=== PATIENT | female | born 1985 | race Caucasian/White ===

== ENCOUNTER → 2017-02-03 | Outpatient (CLI) | payer OTHER ==
[2017-02-03 12:25] LABS: Basophils # (A) 0.1 k/uL (0-0.2); Basophils % (A) 1 %; CH 30.3; CHCM 33.9; Eosinophils # (A) 0.1 k/uL (0-0.7); Eosinophils % (A) 1 %; HCT 44.6 % (34.0-46.0); HDW 2.65; HGB 15.1 gm/dL (11.4-16.0); Luc # (Auto) 0.12; Luc % (Auto) 1; Lymphocytes # (A) 1.9 k/uL (1.0-4.8); Lymphocytes % (A) 21 %; MCH 30.5 pg (25.0-35.0); MCHC 33.9 g/dL (31.0-37.0); MCV 89.9 fL (80.0-100.0); Mean Platelet Volume 7.1; Monocytes # (A) 0.6 k/uL (0-1.0); Monocytes % (A) 6 %; Neutrophils # (A) 6.4 k/uL (1.3-7.7); Neutrophils % (A) 70 %; RBC 4.96 m/uL (3.80-5.40); RDW 12.8 % (11.5-15.5); WBC 9.2 k/uL (3.8-10.6); WBC (Perox) 9.47
[2017-02-03 12:52] LABS: ALT 29 U/L (9-52); AST 15 U/L (14-36); Alkaline Phosphatase 71 U/L (38-126); Anion Gap 10 mmol/L; Blood Urea Nitrogen 11 mg/dL (7-17); Calcium 9.3 mg/dL (8.4-10.2); Carbon Dioxide 24 mmol/L (22-30); Chloride 106 mmol/L (98-107); Glucose 101 mg/dL (74-99); Non-African American GFR(MDRD) >60 (>60 ml/min/1.73 sqM); Potassium 4.3 mmol/L (3.5-5.1); Sodium 140 mmol/L (137-145); Total Bilirubin 0.6 mg/dL (0.2-1.3); Total Protein 6.9 g/dL (6.3-8.2)
== END ==
LOC: LABWHC1 11:56
PROVIDERS: ATTEND Psychiatry & Neurology Psychiatry
DX: T50.905A Adverse effect of unspecified drugs, medicaments and biological substances, initial encounter (principal)
CPT/HCPCS: 36415; 80053; 84443; 85025

== ENCOUNTER → 2017-04-23 | Outpatient (CLI) | payer OTHER ==
--- NOTE | 2017-04-24 08:43 | MM ---
Reason for exam: screening (asymptomatic). Baseline mammogram. History: Patient is nulliparous. Family history of breast cancer in maternal uncle at age 50 and breast cancer in maternal aunt at age 40. Taking hormonal contraceptives for 4 years beginning at age 31. Physical Findings: Nurse did not find any significant physical abnormalities on exam. MG Screening Mammo w CAD Bilateral CC and MLO view(s) were taken. The breast tissue is heterogeneously dense. This may lower the sensitivity of mammography. Finding: There are round, diffuse/scattered calcifications in both breasts. There is no discrete suspicious abnormality. These results were verbally communicated with the patient and result sheet given to the patient on 04/23/17. ASSESSMENT: Benign, BI-RAD 2 RECOMMENDATION: Routine screening mammogram of both breasts in 1 year.
== END | disposition home or self-care (01) ==
LOC: RADMAMWWP 14:19
PROVIDERS: ATTEND Family Medicine
DX: Z12.31 Encounter for screening mammogram for malignant neoplasm of breast (principal)

== ENCOUNTER → 2017-05-20 | Outpatient (CLI) | payer OTHER ==
--- NOTE | 2017-05-20 19:03 | MR ---
EXAMINATION TYPE: MR brain wo con DATE OF EXAM: 05/20/2017 4:50 PM COMPARISON: NONE HISTORY: Hx of Headaches Multiplanar and multispin-echo imaging of the brain was performed . The ventricles, basal cisterns and sulci overlying the cerebral convexities are within normal limits. There is no evidence for midline shift or mass effect. Acute intracranial hemorrhage or extra-axial collection is not evident. The brain parenchyma reveals no abnormal increased signal. No acute edema is identified. The paranasal sinuses and mastoid air cells are well-aerated. IMPRESSION: Unremarkable MRI of the brain.
== END | disposition home or self-care (01) ==
LOC: RADMRIMAIN 14:59
PROVIDERS: ATTEND Psychiatry & Neurology Pain Medicine
DX: R51 Headache (principal); G89.4 Chronic pain syndrome; Z79.899 Other long term (current) drug therapy; Z88.2 Allergy status to sulfonamides; Z88.3 Allergy status to other anti-infective agents; Z88.5 Allergy status to narcotic agent
CPT/HCPCS: 70551

== ENCOUNTER → 2017-05-22 | Outpatient (CLI) | payer OTHER ==
[2017-05-22 11:21] LABS: Calcium 9.2 mg/dL (8.4-10.2); Magnesium 1.9 mg/dL (1.6-2.3)
[2017-05-22 11:38] LABS: Fibrinogen 508 mg/dL (200-500)
[2017-05-22 11:44] LABS: Hemoglobin A1C 4.9 % (4.2-6.1)
[2017-05-22 16:34] LABS: RNP AB Interpretation NEGATIVE (NEGATIVE)
[2017-05-22 16:45] LABS: Cyclic Citrull Pep IgG Unit <0.5 U/mL; Cyclic Citrullinated Pep IgG NEGATIVE (NEGATIVE)
[2017-05-25 08:30] LABS: Vitamin E (Alpha Tocopherol) 1045 ug/dL (500-1800)
[2017-05-25 09:30] LABS: Mis test requested (Blood) THROMBIN TIME W/RFX
[2017-05-25 12:02] LABS: Protein C (Activity) 125 % (70 - 130)
[2017-05-25 12:03] LABS: Protein S (Activity) 82 % (65 - 140); Protein S Antigen 105 % (50 - 140)
[2017-05-26 12:00] LABS: Protein C Antigen 127 % (72-160)
== END | disposition home or self-care (01) ==
LOC: LABWHC1 10:22
PROVIDERS: ATTEND Psychiatry & Neurology Pain Medicine
DX: G89.4 Chronic pain syndrome (principal); Z79.899 Other long term (current) drug therapy
CPT/HCPCS: 36415; 81240; 81291; 82306; 82310; 82550; 83036; 83090; 83519; 83735; 84207; 84425; 84446; 84590; 84591; 84597; 85300; 85301; 85302; 85303; 85305; 85306; 85379; 85384; 85613; 85670; 85730; 86147; 86200; 86235

== ENCOUNTER → 2017-07-28 | Outpatient (CLI) | payer OTHER ==
--- NOTE | 2017-07-28 21:39 | CONS ---
CONSULTATION REASON FOR CONSULTATION: This is a consultation for sleep apnea. HISTORY OF PRESENT ILLNESS: Jamee is 32, with history of severe depression. The patient reports chronic anxiety and depression and she has also she has had also episodes of hallucinations. She was admitted on multiple occasions to psychiatrically wart at [facility] and currently she is on a combination of Pristiq, Latuda and BuSpar. There was a concern that she may have a sleep breathing disorder knowing that she has been feeling very tired and sleepy during the day. She spends more than 10 hours in bed. Sometimes takes a few hours to fall asleep and after falling sleep she wakes up constantly in the middle of the night. She goes to bed around 10:00 pm wakes up 10:00 am in the morning. She is told to be snoring. She is excessively fatigued and sleepy during the day. She wakes up occasionally to urinate and she grinds her teeth. She obviously has chronic anxiety and occasional panic attacks. As for the hallucinations she sees ants and demons, mainly demons when she wakes up in the morning. Sometimes the demons talk to her. She claims that she is awake when she is having these hallucinations. As such, there are some visual and auditory hallucinations, mainly she wakes up in the morning. Rarely while trying to go to sleep. She also has some occasional sleep paralysis, no cataplexy noted. No personal or family history of narcolepsy at all. She has been told that her depression was the main source for hallucinations which seems to be a major depression and over the past 2 months with recent adjustment in her medications she has not had any hallucinations. No substance abuse. No alcoholism. No sleepwalking or sleep talking. No sleep eating disorder. No significant restlessness in the lower extremities. Although she has been told to have some restless sleep and she tosses and turns and kicks as reported by her family members. She takes around 3 hours nap in the afternoon. PAST MEDICAL HISTORY: 1. Major depression. 2. Anxiety. 3. Hallucinations. 4. Occasional nightmares. SURGICAL HISTORY: Includes an appendectomy, sinus surgery, cholecystectomy. DRUG ALLERGIES: ARE TO SULFA. CODEINE. CLARITIN. SOCIAL HISTORY: The patient is a nonsmoker. No history of alcohol. No history of IV drugs. She is disabled. MEDICATION: Includes: 1. Pristiq 50 daily. 2. Latuda 60 daily. 3. BuSpar 30 mg twice a day. FAMILY HISTORY: Negative for sleep breathing disorder and sleep apnea. REVIEW OF SYSTEMS: 12-point review of system was done. Positive findings are mentioned above in history of present illness. As mentioned, she has major depression along with anxiety and she has been socially withdrawn. She was very much anxious when she was in public places. No palpitations at nighttime. No heartburn, no sleepwalking, no sleep talking, no restlessness in lower extremities. No waking up choking or gasping for air. She grinds her teeth. She has panic nocturia and she has also excessive fatigue and sleepiness along with her depression and anxiety. PHYSICAL EXAMINATION: BP is 102/66, pulse 84, respirations 16, temp 98.7, saturation 97% on room air. BMI 36.4, weight is 241. Height is 5 feet 8 inches. Neck size is 14.5 inches. General appearance, calm comfortable not in acute distress. HEENT: Negative for goiter or neck masses. Mallampati class 4. Slight overbite. Head is atraumatic, normocephalic. LUNGS: Clear to auscultation. HEART: Sounds regular rate and rhythm. Normal S1, S2. No murmurs. ABDOMEN: Soft, nontender. No organomegaly. EXTREMITIES: No edema. No cyanosis or clubbing. Skin negative for rashes or ulcers and neuro is awake, alert and oriented times three. There is no focal neurological deficits. Psych as mentioned above. No active hallucinations or no active anxiety at this point. IMPRESSION: 1. Chronic hypersomnia and fatigue rule out underlying obstructive sleep apnea. Sleep apnea will be need to be ruled out although the patient has multiple other causes for her chronic fatigue and sleepiness including her history of depression and anxiety. 2. Hallucinations likely psychiatric in nature. Doubt narcolepsy. 3. Obesity BMI 36.1. 4. Chronic fatigue and sleepiness with an Ostrander score of 5. 5. Major depression. 6. Anxiety. 7. Episodes of nightmares. PLAN: 1. We will perform a full polysomnogram in the sleep center. 2. Keep same medications includes a combination of BuSpar, Latuda and Pristiq. 3. Encourage weight loss. 4. Implement good sleep hygiene measures. 5. We will offer treatment if there is any significant sleep breathing disorder. MMODL / IJN: [id number] /
== END ==
LOC: SLEEP 13:58
PROVIDERS: ATTEND Internal Medicine Critical Care Medicine
DX: G47.10 Hypersomnia, unspecified (principal); R44.3 Hallucinations, unspecified; E66.9 Obesity, unspecified; R53.82 Chronic fatigue, unspecified; F41.9 Anxiety disorder, unspecified; F32.9 Major depressive disorder, single episode, unspecified; F51.5 Nightmare disorder; Z68.36 Body mass index [BMI] 36.0-36.9, adult; Z79.899 Other long term (current) drug therapy; Z88.2 Allergy status to sulfonamides; Z88.5 Allergy status to narcotic agent
CPT/HCPCS: 99211

== ENCOUNTER → 2017-11-05 | Outpatient (CLI) | payer OTHER ==
--- NOTE | 2017-11-05 18:15 | MR ---
EXAMINATION TYPE: MR lumbar spine wo con DATE OF EXAM: 11/05/2017 COMPARISON: NONE HISTORY: Low back pain TECHNIQUE: T1 and T2 axial and sagittal images of the lumbar spine are submitted. FINDINGS: There is no abnormal signal seen within the visualized spinal cord or paraspinal soft tissu es. Simple right renal cyst incidentally noted. Tarlov cyst noted involving the S1-S2 level. At least one large cyst is seen extending through the S1 neural foramina on the left. At L1-2 there is no disc herniation or canal stenosis. No foraminal encroachment. At L2-3 there is there is a nerve root sleeve diverticulum on the right which may have some mass effe ct on the nerve root. No disc herniation or canal stenosis. At L3-4 there is no disc herniation or canal stenosis. No foraminal encroachment. At L4-5 there is no disc herniation or canal stenosis. No foraminal encroachment. At L5-S1 there is no disc herniation or canal stenosis. No foraminal encroachment. Findings are sugge stive of a bilateral spondylolysis of L5 with no spondylolisthesis. IMPRESSION: 1. There is a prominent nerve root sleeve diverticulum on the right at L2-L3. The seen within the rig ht neural foramina may have some mass effect upon the right nerve root correlate clinically. 2. Tiny areas are suspicious for bilateral spondylolysis of L5. 3. Multiple sacral Tarlov cysts.
== END | disposition home or self-care (01) ==
LOC: RADMRIMAIN 17:29
PROVIDERS: ATTEND Psychiatry & Neurology Neurology
DX: G96.19 Other disorders of meninges, not elsewhere classified (principal)
CPT/HCPCS: 72148

== ENCOUNTER → 2017-11-10 | Outpatient (CLI) | payer OTHER ==
--- NOTE | 2017-11-10 16:06 | PN ---
PROGRESS NOTE PROGRESS NOTE FROM THE SLEEP CENTER: This patient is 32, diagnosed having marked to moderate obstructive sleep apnea. The patient is coming in for a compliancy check. The patient has history of chronic depression. She has been maintained on a combination of Pristiq, Latuda and BuSpar. Recently there have been changes done on her medication list which affected her depression and anxiety adversely. She became more symptomatic and she had to contact her counselor and her psychiatrist for further adjustment. Based on this, all the adjustments that were made were undone, and the patient is currently back to her routine medication. The most recent regimen right now is BuSpar, Abilify and Pristiq. The patient is not having any suicidal ideation at this point and she is seeing her counselor on a regular basis. In regard to her obstructive sleep apnea, the patient reports improvement in her sleep quality. She is not requiring long hours of sleep. She wakes up at 5 a.m. in the morning and she is well refreshed and alert during the day. As mentioned earlier, she has gained a significant amount of weight due to her depression and psychiatric medication, and currently she is up to 250 and she is interested in weight loss. She will be undergoing a hysterectomy for vaginal bleeding and this will be done at the [facility]. In terms of obstructive sleep apnea, the patient is benefitting from the treatment. She has no issues continuing the treatment for now. Her CPAP compliance data show that the numbers are gradually improving, especially over the past week. Her overall CPAP use is around 4.9 hours per night. Leak factor is 6 L. AHI is down to 0.8 while on treatment. Her current CPAP pressure is 8 cm of water. CPAP use for more than 4 hours is 28/30 over the past month. PHYSICAL EXAMINATION: BP is 104/66, pulse 72, respiratory rate 16. Weight is 250, temperature 98.1, saturation 98% on room air. GENERAL APPEARANCE: Calm, comfortable, in no acute distress. Head is atraumatic, normocephalic. NECK: Negative for JVD. There is no goiter or neck masses. Some keloids on the ears. Mallampati class 2 to 3. LUNGS: Clear to auscultation. HEART: Heart sounds are regular rate and rhythm. Normal S1, S2. No S3. No S4. No murmurs. ABDOMEN: Soft and nontender. EXTREMITIES: There is no cyanosis or clubbing at this point. SKIN: The patient has no ulcerations or wounds. NEUROLOGIC: Alert and oriented x3. There is no focal neurological deficit. IMPRESSION: 1. Symptomatic obstructive sleep apnea; AHI of 18; currently on successful treatment at a pressure of 7 cm of water. 2. Chronic depression. 3. History of weight loss. Current weight is up to 250. BMI is above 35. 4. History of vaginal bleeding; awaiting hysterectomy. PLAN: The patient is compliant. Her compliance data show improvement in use and she has been averaging a higher number of hours on her CPAP per night. She is waking up much more alert and refreshed during the day. Her hypersomnia has improved. Continue the same treatment. Take the CPAP machine with her and use it perioperatively post hysterectomy. The patient is doing well. She seems to be committed to weight loss. I will see her back in a year's time in followup, earlier if needed. Currently she is using a Mirage FX nose mask. MMMILYL / IJN: [id number] /
== END | disposition home or self-care (01) ==
LOC: SLEEP 14:28
PROVIDERS: ATTEND Internal Medicine Critical Care Medicine
DX: G47.33 Obstructive sleep apnea (adult) (pediatric) (principal); F32.9 Major depressive disorder, single episode, unspecified

== ENCOUNTER → 2018-03-09 | Outpatient (CLI) | payer OTHER ==
[2018-03-10 01:23] LABS: Cyclic Citrullinated Pep IgG NEGATIVE (NEGATIVE); DNA Double-Stranded NEGATIVE (NEGATIVE); RNP <0.2 AI; Scleroderma SC-70 Ab <0.2 AI
== END | disposition home or self-care (01) ==
LOC: LABWHC1 16:04
PROVIDERS: ATTEND Psychiatry & Neurology Pain Medicine
DX: M25.50 Pain in unspecified joint (principal)
CPT/HCPCS: 36415; 83516; 86038; 86200; 86225; 86235

== ENCOUNTER → 2018-05-20 | Outpatient (CLI) | payer OTHER ==
--- NOTE | 2018-05-20 22:48 | MR ---
EXAMINATION TYPE: MR brain wo/w con DATE OF EXAM: 05/20/2018 COMPARISON: Prior MRI brain May 20, 2017 HISTORY: Headaches, unusual duration per order. TECHNIQUE: Multiplanar, multisequence images of the brain and brainstem is performed without and with IV contras t, utilizing 11 mL intravenous Gadavist . FINDINGS: Diffusion weighted images demonstrate no evidence of a recent infarct or other diffusion ab normality. There is no extra-axial fluid collection or significant white matter signal abnormality. The ventricular system and cisternal spaces are normal in size and appearance. The brain volume is age appropriate. Midline structures demonstrate normal morphology. The craniocervical junction appears within normal limits. Post contrast images demonstrate no abnormal enhancement. Dominant left vertebral artery is incidentally redemonstrated. The dural venous sinuses appear patent. The visualized sinuses are clear and the globes are intact. IMPRESSION: No suspicious new finding identified to account for patient's symptoms. No significant ch luis from prior.
== END | disposition home or self-care (01) ==
LOC: RADMRIMAIN 21:38
PROVIDERS: ATTEND Psychiatry & Neurology Neurology
DX: R51 Headache (principal); Z88.2 Allergy status to sulfonamides; Z88.5 Allergy status to narcotic agent; Z88.8 Allergy status to other drugs, medicaments and biological substances; Z91.040 Latex allergy status
CPT/HCPCS: 70553; A9581

== ENCOUNTER → 2018-06-08 | Outpatient (CLI) | payer OTHER ==
--- NOTE | 2018-06-08 13:38 | XR ---
EXAMINATION TYPE: XR chest 2V DATE OF EXAM: 06/08/2018 COMPARISON: NONE TECHNIQUE: PA and lateral views submitted. HISTORY: Cough FINDINGS: The lungs are clear and there is no pneumothorax, pleural effusion, or focal pneumonia. IMPRESSION: 1. No acute process.
== END | disposition home or self-care (01) ==
LOC: RADXRMAIN 13:06
PROVIDERS: ATTEND Nurse Practitioner
DX: J45.991 Cough variant asthma (principal); G44.83 Primary cough headache
CPT/HCPCS: 71046

== ENCOUNTER → 2018-07-12 | Outpatient (CLI) | payer OTHER ==
[2018-07-12 14:36] LABS: Basophils # (A) 0.1 k/uL (0-0.2); Basophils % (A) 1 %; Eosinophils # (A) 0.1 k/uL (0-0.7); Eosinophils % (A) 1 %; HCT 44.8 % (34.0-46.0); HGB 14.9 gm/dL (11.4-16.0); Lymphocytes # (A) 1.7 k/uL (1.0-4.8); Lymphocytes % (A) 16 %; MCHC 33.2 g/dL (31.0-37.0); MCV 90.3 fL (80.0-100.0); Mean Platelet Volume 7.3; Monocytes # (A) 0.8 k/uL (0-1.0); Monocytes % (A) 7 %; Neutrophils # (A) 7.5 k/uL (1.3-7.7); Neutrophils % (A) 73 %; Platelet Count 214 k/uL (150-450); RBC 4.96 m/uL (3.80-5.40); RDW 13.2 % (11.5-15.5); WBC 10.4 k/uL (3.8-10.6)
[2018-07-12 16:05] LABS: Total Eosinophil Count 87 #EOS/uL (150-300)
== END | disposition home or self-care (01) ==
LOC: LABWHC1 14:04
PROVIDERS: ATTEND Allergy & Immunology
DX: R05 Cough (principal)
CPT/HCPCS: 36415; 85008; 85025

== ENCOUNTER 2018-08-06 17:21 | Inpatient (IN) | payer MEDICARE, MEDICAID ==
--- NOTE | 2018-08-06 17:51 | ED ---
Psych HPI - General Chief Complaint: Psychiatric Symptoms Stated Complaint: EPS eval Time Seen by Provider: 08/06/18 17:51 Source: patient Mode of arrival: ambulatory - History of Present Illness Initial Comments: This is a 33-year-old female the ER for evaluation of psychiatric illness. Patient states she feels like she is having some hallucinations and delusions, thinking strong her skin, very emotional crying a controlled crying, patient cause of urticaria they were she was seen for possible ALLERGIC reaction. Patient's mental state custody come to ER for evaluation, she call [facility] to directed patient to emergency room MD Complaint: suicidal ideation, feels depressed -: unknown Associated Psychiatric Symptoms: depression, racing thoughts, visual hallucinations, delusions History of same: Yes Quality: intermittent, getting worse Improves With: none Worsens With: medication Associated Symptoms: denies other symptoms Treatments Prior to Arrival: none - Related Data Home Medications Medication Instructions Recorded Confirmed Budesonide [Pulmicort Flexhaler] 2 puff INHALATION RT-BID 08/06/18 08/06/18 Butalb/APAP/Caff 50-325-40Mg 1 tab PO DAILY PRN 08/06/18 08/06/18 [Fioricet 50-325-40] Fluticasone Nasal Juliette [Flonase 2 spray EA NOSTRIL BID 08/06/18 08/06/18 Nasal Juliette] Gabapentin [Neurontin] 300 mg PO BID@,08/06/18 08/06/18 Ondansetron HCl [Zofran] 4 mg PO TID PRN 08/06/18 08/06/18 Ranitidine HCl [Zantac] 150 mg PO BID@,08/06/18 08/06/18 Topiramate [Topamax] 50 mg PO BID@,08/06/18 08/06/18 busPIRone HCL [Buspar] 30 mg PO BID@,08/06/18 08/06/18 fluvoxaMINE [Luvox] 50 mg PO AC-LUNCH@1100 08/06/18 08/06/18 Allergies Allergy/AdvReac Type Severity Reaction Status Date / Time codeine Allergy Unknown Verified 08/06/18 18:11 levocetirizine [From Xyzal] Allergy Unknown Verified 08/06/18 18:11 loratadine [From Claritin] Allergy Unknown Verified 08/06/18 18:11 nortriptyline [From Pamelor] Allergy Unknown Verified 08/06/18 18:11 Sulfa (Sulfonamide Allergy Unknown Verified 08/06/18 18:11 Antibiotics) Review of Systems ROS Statement: Those systems with pertinent positive or pertinent negative responses have been documented in the HPI. ROS Other: All systems not noted in ROS Statement are negative. Past Medical History Past Medical History: No Reported History Additional Past Medical History / Comment(s): agoraphobia, ocd History of Any Multi-Drug Resistant Organisms: None Reported Past Surgical History: Appendectomy, Cholecystectomy, Hysterectomy Additional Past Surgical History / Comment(s): sinus, kidney surgery r/t no flaps on the ureters Past Psychological History: PTSD, Schizoaffective Disorder Smoking Status: Never smoker Past Alcohol Use History: None Reported Past Drug Use History: None Reported General Exam Limitations: no limitations General appearance: alert, in no apparent distress Head exam: Present: atraumatic, normocephalic, normal inspection Eye exam: Present: normal appearance, PERRL, EOMI. Absent: scleral icterus, conjunctival injection, periorbital swelling ENT exam: Present: normal exam, mucous membranes moist Neck exam: Present: normal inspection. Absent: tenderness, meningismus, lymphadenopathy Respiratory exam: Present: normal lung sounds bilaterally. Absent: respiratory distress, wheezes, rales, rhonchi, stridor Cardiovascular Exam: Present: regular rate, normal rhythm, normal heart sounds. Absent: systolic murmur, diastolic murmur, rubs, gallop, clicks GI/Abdominal exam: Present: soft, normal bowel sounds. Absent: distended, tenderness, guarding, rebound, rigid Extremities exam: Present: normal inspection, full ROM, normal capillary refill. Absent: tenderness, pedal edema, joint swelling, calf tenderness Back exam: Present: normal inspection Neurological exam: Present: alert, oriented X3, CN II-XII intact Psychiatric exam: Present: normal affect, normal mood Skin exam: Present: warm, dry, intact, normal color. Absent: rash Course Vital Signs 08/06/18 17:35 Temperature 97.9 F Pulse Rate 80 Respiratory 18 Rate Blood Pressure 114/81 O2 Sat by Pulse 99 Oximetry - Reevaluation(s) Reevaluation #1: 10/12/18 19:19 Medically clear for psychiatric evaluation Medical Decision Making - Medical Decision Making 33 female seen gracia valuated by psychiatry will be admitted for psychiatric evaluation and treatment, - Lab Data Lab Results 08/06/18 Range/Units 18:29 Urine Opiates Screen Not Detected (NotDetected) Ur Oxycodone Screen Not Detected (NotDetected) Urine Methadone Screen Not Detected (NotDetected) Ur Propoxyphene Screen Not Detected (NotDetected) Ur Barbiturates Screen Not Detected (NotDetected) U Tricyclic Antidepress Not Detected (NotDetected) Ur Phencyclidine Scrn Not Detected (NotDetected) Ur Amphetamines Screen Not Detected (NotDetected) U Methamphetamines Scrn Not Detected (NotDetected) U Benzodiazepines Scrn Not Detected (NotDetected) Urine Cocaine Screen Not Detected (NotDetected) U Marijuana (THC) Screen Not Detected (NotDetected) Disposition Clinical Impression: Acute psychosis, Depression Disposition: ADMITTED IP TO THIS [facility] Condition: Fair Is patient prescribed a controlled substance at d/c from ED?: No
[2018-08-06 19:35] LABS: Amphetamine Screen,Urine Not Detected (NotDetected); Barbiturate Screen,Urine Not Detected (NotDetected); Benzodiazepines Screen,Urine Not Detected (NotDetected); Cocaine Screen,Urine Not Detected (NotDetected); Methadone Screen, Urine Not Detected (NotDetected); Opiate Screen,Urine Not Detected (NotDetected); Oxycodone Screen, Urine Not Detected (NotDetected); Phencyclidine Screen,Urine Not Detected (NotDetected); Tricyclic Antidepressant,Urine Not Detected (NotDetected); Urn Cannabinoid Scrn Not Detected (NotDetected)
[2018-08-06] MEDS ORDERED: MAG HYDROX/AL HYDROX/SIMETH 30 ML CUP PO PRN (22:55)
[2018-08-06] MEDS ORDERED: MAGNESIUM HYDROXIDE 2,400 MG/10 ML CUP PO PRN (22:55)
[2018-08-06] MEDS ORDERED: ZIPRASIDONE 20 MG VIAL IM PRN (22:55)
[2018-08-06] MEDS ORDERED: LORazepam 1 MG TAB PO PRN (22:55)
[2018-08-06] MEDS ORDERED: LORazepam 2 MG/ML INJ IM PRN (22:58)
[2018-08-06] MEDS ORDERED: ALBUTEROL NEBULIZED 2.5 MG/3 ML INHALATION PRN (23:02)
[2018-08-06 23:12] LABS: Appearance,Urine Clear (Clear); Bilirubin,Urine Negative (Negative); Blood,Urine Negative (Negative); Color,Urine Light Yellow; Glucose,Urine (UA) Negative (Negative); Ketones,Urine Negative (Negative); Leukocyte Esterase,Urine Negative (Negative); Nitrite,Urine Negative (Negative); PH, Urine 6.5 (5.0-8.0); Protein,Urine Negative (Negative); Specific Gravity,Urine 1.005 (1.001-1.035); Urobilinogen,Urine <2.0 mg/dL (<2.0)
[2018-08-07] MEDS: FAMOTIDINE 20 MG TAB PO SCH ×3 (00:06→22:09)
[2018-08-07] MEDS: GABAPENTIN 300 MG CAP PO SCH ×3 (00:07→22:10)
[2018-08-07] MEDS: MONTELUKAST 10 MG TAB PO SCH ×2 (00:11→22:09)
[2018-08-07] MEDS: busPIRone HCl 10 MG TAB PO SCH ×3 (00:42→22:10)
[2018-08-07] MEDS ORDERED: Budesonide [Pulmicort Flexhaler] INHALATION SCH (08:00)
[2018-08-07] MEDS: FLUTICASONE 50MCG/SPRAY NASAL 16GM EA NOSTRIL SCH ×2 (08:29→21:00)
[2018-08-07 09:41] LABS: ALT 13 U/L (9-52); AST 16 U/L (14-36); Albumin 3.6 g/dL (3.5-5.0); Alkaline Phosphatase 78 U/L (38-126); Anion Gap 10 mmol/L; Blood Urea Nitrogen 9 mg/dL (7-17); Calcium 9.2 mg/dL (8.4-10.2); Carbon Dioxide 22 mmol/L (22-30); Chloride 111 mmol/L (98-107); Glucose 125 mg/dL (74-99); Potassium 4.4 mmol/L (3.5-5.1); Sodium 143 mmol/L (137-145); Total Bilirubin 0.5 mg/dL (0.2-1.3); Total Protein 6.5 g/dL (6.3-8.2)
[2018-08-07] MEDS ORDERED: busPIRone HCl 10 MG TAB PO SCH (11:00)
--- NOTE | 2018-08-07 14:55 | P.MDCNMH ---
History of Present Illness H&P Date: 08/07/18 Chief Complaint: rash 33-year-old F with PMH of asthma, GERD, migraine headaches, fibromyalgia presents to the ED for evaluation of psychiatric illness. Patient reports possible hallucinations and delusions. Patient does complain of a rash on her bilateral breast that started yesterday. Her rash was associated with tingling lips, and a feeling that she had swallowed some bees.patient states this prompted her to go to [facility] yesterday, where she received Benadryl IM injection and some ibuprofen to go home. She was told that this is an ALLERGIC reaction to Xyzal. patient reports the rash to be burning in nature, also peeling as well. Of note, patient does complain of a headache. She associates this headache to her chronic migraines. Patient reports a migraine starts in her right eye, stabbing in nature which then spreads to the rest of her head which is squeezing in nature. This headache is associated with nausea as well. She denies any lower extremity edema, fever, chills, chest pain, shortness of breath, palpitations, changes in urination or bowel habits. No changes in appetite or weight. No numbness, weakness, tingling. Review of Systems All systems: negative Past Medical History Past Medical History: No Reported History Additional Past Medical History / Comment(s): agoraphobia, ocd History of Any Multi-Drug Resistant Organisms: None Reported Past Surgical History: Appendectomy, Cholecystectomy, Hysterectomy Additional Past Surgical History / Comment(s): sinus, kidney surgery r/t no flaps on the ureters Past Psychological History: PTSD, Schizoaffective Disorder Smoking Status: Never smoker Past Alcohol Use History: None Reported Past Drug Use History: None Reported Medications and Allergies Home Medications Medication Instructions Recorded Confirmed Type Budesonide [Pulmicort Flexhaler] 2 puff INHALATION RT-BID 08/06/18 08/06/18 History Butalb/APAP/Caff 50-325-40Mg 1 tab PO DAILY PRN 08/06/18 08/06/18 History [Fioricet 50-325-40] Fluticasone Nasal Brandt [Flonase 2 spray EA NOSTRIL BID 08/06/18 08/06/18 History Nasal Brandt] Gabapentin [Neurontin] 300 mg PO BID@08/06/18 08/06/18 History Ondansetron HCl [Zofran] 4 mg PO TID PRN 08/06/18 08/06/18 History Ranitidine HCl [Zantac] 150 mg PO BID@,08/06/18 08/06/18 History Topiramate [Topamax] 50 mg PO BID@,08/06/18 08/06/18 History busPIRone HCL [Buspar] 30 mg PO BID@,08/06/18 08/06/18 History fluvoxaMINE [Luvox] 50 mg PO AC-LUNCH@1100 08/06/18 08/06/18 History Allergies Allergy/AdvReac Type Severity Reaction Status Date / Time codeine Allergy Unknown Verified 08/06/18 22:28 fish derived Allergy Anaphylaxis Verified 08/07/18 11:43 levocetirizine [From Xyzal] Allergy Unknown Verified 08/06/18 22:28 loratadine [From Claritin] Allergy Unknown Verified 08/06/18 22:28 nortriptyline [From Pamelor] Allergy Unknown Verified 08/06/18 22:28 Sulfa (Sulfonamide Allergy Unknown Verified 08/06/18 22:28 Antibiotics) celery AdvReac Nausea & Verified 08/07/18 11:42 Vomiting Milk Containing Products AdvReac Nausea & Verified 08/07/18 11:41 Vomiting nut - unspecified AdvReac Nausea & Verified 08/07/18 11:44 Vomiting tomato AdvReac Nausea & Verified 08/07/18 11:40 Vomiting wheat AdvReac Nausea & Verified 08/07/18 11:41 Vomiting Physical Exam Vitals: Vital Signs Temp Pulse Pulse Resp BP BP Pulse Ox 08/07/18 06:56 97.9 F 82 14 91/58 08/06/18 17:35 97.9 F 80 18 114/81 99 Intake and Output 08/06/18 08/07/18 08/07/18 22:59 06:59 14:59 Other: Weight 112.491 kg General: [non toxic], [no distress], [appears at stated age] Derm: [warm], [dry] Head: [atraumatic], [normocephalic], [symmetric] Eyes: [EOMI], [no lid lag], [anicteric sclera] Mouth: [no lip lesion], [mucus membranes moist] Cardiovascular: [S1S2 reg], [no murmur], [positive DP pulse bilateral] Lungs: [CTA bilateral], [no rhonchi, no rales] , [no accessory muscle use] Abdominal: [soft], [ nontender to palpation], [no guarding], [no appreciable organomegaly] Ext: [no gross muscle atrophy], [no edema], [no contractures] Neuro: [ CN II-XI grossly intact], [no focal neuro deficits] Psych: [Alert], [oriented], [appropriate affect] No obvious rash seen on bilateral chest. Mild Xerosis. No erythema or discharge. Cranial Nerve Examination - Cranial Nerves Cranial Nerve II- Optic: Intact Cranial Nerve III- Oculomotor: Intact Cranial Nerve IV- Trochlear: Intact Cranial Nerve V- Trigeminal: Intact Cranial Nerve - Abducens: Intact Cranial Nerve VII- Facial: Intact Cranial Nerve VIII- Auditory: Intact Cranial Nerve IX- Glossopharyngeal: Intact Cranial Nerve X- Vagus: Intact Cranial Nerve XI- Accessory: Intact Cranial Nerve XII- Hypoglossal: Intact Results CBC & Chem 7: 08/07/18 08:43 Labs: Abnormal Lab Results - Last 24 Hours (Table) 08/07/18 Range/Units 08:43 Chloride 111 H (98-107) mmol/L Glucose 125 H (74-99) mg/dL Assessment and Plan Assessment: Assessment and Plan 1. Migraine ALMONTE: Continue Topiramate 50 mg PO BID. Tylenol 650 mg PO Q4H for ALMONTE. Would change to Fioricet if possible (has caffeine in it). 2. Rash: Not obviously noticable. No signs of infection. Likely xerosis, does not appear to be an allergy. Trial of Eucerin. 3. Hallucinations: Management as per Psychiatry. 4. Fibromyalgia: Stable. Continue Gabapentin 300 mg PO BID. 5. Asthma: Stable. Albuterol neb PRN for SOB. Continue Pulmicort 2 puff BID, Singulair 10 mg PO QHS. 6. GERD: Pepcid 20 mg PO BID.
--- NOTE | 2018-08-07 17:54 | P.HP ---
Psychiatric H&P - . H&P Date: 08/07/18 History & Physical: Allergies Allergy/AdvReac Type Severity Reaction Status Date / Time codeine Allergy Unknown Verified 08/06/18 22:28 fish derived Allergy Anaphylaxis Verified 08/07/18 11:43 levocetirizine [From Xyzal] Allergy Unknown Verified 08/06/18 22:28 loratadine [From Claritin] Allergy Unknown Verified 08/06/18 22:28 nortriptyline [From Pamelor] Allergy Unknown Verified 08/06/18 22:28 Sulfa (Sulfonamide Allergy Unknown Verified 08/06/18 22:28 Antibiotics) celery AdvReac Nausea & Verified 08/07/18 11:42 Vomiting Milk Containing Products AdvReac Nausea & Verified 08/07/18 11:41 Vomiting nut - unspecified AdvReac Nausea & Verified 08/07/18 11:44 Vomiting tomato AdvReac Nausea & Verified 08/07/18 11:40 Vomiting wheat AdvReac Nausea & Verified 08/07/18 11:41 Vomiting Vital Signs Temp 97.9 F 08/07/18 06:56 Pulse 82 08/07/18 06:56 Resp 14 08/07/18 06:56 BP 91/58 08/07/18 06:56 Pulse Ox 99 08/06/18 17:35 Intake & Output 08/06/18 08/07/18 08/07/18 18:59 06:59 18:59 Weight 112.491 kg Laboratory Last Values Sodium 143 mmol/L (137-145) 08/07/18 08:43 Potassium 4.4 mmol/L (3.5-5.1) 08/07/18 08:43 Chloride 111 mmol/L (98-107) H 08/07/18 08:43 Carbon Dioxide 22 mmol/L (22-30) 08/07/18 08:43 Anion Gap 10 mmol/L 08/07/18 08:43 BUN 9 mg/dL (7-17) 08/07/18 08:43 Creatinine 0.83 mg/dL (0.52-1.04) 08/07/18 08:43 Est GFR (CKD-EPI)AfAm >90 (>60 ml/min/1.73 sqM) 08/07/18 08:43 Est GFR (CKD-EPI)NonAf >90 (>60 ml/min/1.73 sqM) 08/07/18 08:43 Glucose 125 mg/dL (74-99) H 08/07/18 08:43 Calcium 9.2 mg/dL (8.4-10.2) 08/07/18 08:43 Total Bilirubin 0.5 mg/dL (0.2-1.3) 08/07/18 08:43 AST 16 U/L (14-36) 08/07/18 08:43 ALT 13 U/L (9-52) 08/07/18 08:43 Alkaline Phosphatase 78 U/L (38-126) 08/07/18 08:43 Total Protein 6.5 g/dL (6.3-8.2) 08/07/18 08:43 Albumin 3.6 g/dL (3.5-5.0) 08/07/18 08:43 TSH 3.130 mIU/L (0.465-4.680) 08/07/18 08:43 Urine Color Light Yellow 08/06/18 18: Urine Appearance Clear (Clear) 08/06/18 18: Urine pH 6.5 (5.0-8.0) 08/06/18 18: Ur Specific [place] 1.005 (1.001-1.035) 08/06/18 18: Urine Protein Negative (Negative) 08/06/18 18: Urine Glucose (UA) Negative (Negative) 08/06/18 18: Urine Ketones Negative (Negative) 08/06/18 18: Urine Blood Negative (Negative) 08/06/18 18: Urine Nitrite Negative (Negative) 08/06/18 18: Urine Bilirubin Negative (Negative) 08/06/18 18: Urine Urobilinogen <2.0 mg/dL (<2.0) 08/06/18 18: Ur Leukocyte Esterase Negative (Negative) 08/06/18 18: Urine HCG, Qual Not Detected (Not Detectd) 08/06/18 18: Urine Opiates Screen Not Detected (NotDetected) 08/06/18 18: Ur Oxycodone Screen Not Detected (NotDetected) 08/06/18 18: Urine Methadone Screen Not Detected (NotDetected) 08/06/18 18: Ur Propoxyphene Screen Not Detected (NotDetected) 08/06/18 18:29 Ur Barbiturates Screen Not Detected (NotDetected) 08/06/18 18:29 U Tricyclic Antidepress Not Detected (NotDetected) 08/06/18 18:29 Ur Phencyclidine Scrn Not Detected (NotDetected) 08/06/18 18:29 Ur Amphetamines Screen Not Detected (NotDetected) 08/06/18 18:29 U Methamphetamines Scrn Not Detected (NotDetected) 08/06/18 18:29 U Benzodiazepines Scrn Not Detected (NotDetected) 08/06/18 18:29 Urine Cocaine Screen Not Detected (NotDetected) 08/06/18 18:29 U Marijuana (THC) Screen Not Detected (NotDetected) 08/06/18 18:29 08/07/18 17:44 IDENTIFYING DATA: 33-year-old female patient. HPI: Patient is admitted to the inpatient psychiatric unit [facility] on a voluntary basis with recent concerns of depression as well as concerns of visual hallucinations. Patient states that [facility] of an [facility]ERGIC reaction to medication and she says she had a bad anxiety attack there. She states that they talked about her coming to the hospital for psychiatric evaluation. She says she always cycles bad in August and she decided to get ahead of the situation. She states that she has a history of hallucinations of seeing bugs and she states that she has been feeling a presence but doesn't fully see it yet. She makes reference to her house being infested with fleas, she is not sure sometimes it there is actually about on her or she is hallucinating about. She says that she killed a few bugs on her here. She makes reference to being really itchy and relays that she would like to take off her skin and itch her bones. She says she feels bugs on her constantly. She does admit to some recent depression. PAST PSYCHIATRIC HISTORY: She relates she doesn't history of seasonal affective disorder. She says that for her hallucinations tend to happen August through December where she sees things. This is her ninth inpatient psychiatric admissions. She has a history of 2 suicide attempts which were overdoses. She doesn't history of cutting behavior but has not exhibited any cutting behavior over the last year. Says in the past she has broken her own bones. She currently sees a counselor Eleonora at [facility] and psychiatrist Dr. Pascual through [facility]. She has most recent been on Luvox 50 mg daily and BuSpar 30 mg twice a day. She feels that these medications have worked well. She was on Abilify in the past. PMH: Fibromyalgia, asthma ALLERGIES: Codeine, fish derived,xyzal, Claritin, Pamelor, sulfa, celery, milk containing products, nut, tomato, wheat MEDICATIONS: Tylenol when necessary, Maalox when necessary, Ventolin when necessary, Pulmicort, BuSpar, Pepcid, Flonase, Luvox, Neurontin, Ativan when necessary, milk of magnesia when necessary, Singulair, Eucerin cream, Topamax, Geodon when necessary, Zofran when necessary is a home med CHEMICAL DEPENDENCY HISTORY: None verbalized FAMILY PSYCHIATRIC HISTORY: Mom and dad may have depression/anxiety, sister with anxiety, depression and seasonal affective disorder. FAMILY CHEMICAL DEPENDENCY HISTORY: None known at this time SOCIAL HISTORY: Currently lives with her dad. She talks of having squirrels in the attic mice and fleas. MENTAL STATUS EXAM: She is alert and cooperative with the interview. Her speech is fluent, not rapid or pressured. Her thought processes overall are organized. She describes her mood as "very anxious." Her affect is able show range. She denies any current visual hallucinations but gives a history of visual hallucinations of seeing bugs historically August through December. She makes reference to recently feeling a presence but not fully seeing it yet. She makes reference to killing a few bugs on her here. She relays she feels bugs on her constantly. She does not show any agitation. She denies any recent or current thoughts of harm to self or others. She does not verbalize any auditory hallucinations. Cognitively she appears very grossly intact. Insight is adequate, judgment shows evidence of recent impairment. STRENGTHS/WEAKNESSES: Strengths-seeking treatment, weaknesses-coping skills INTELLECTUAL FUNCTIONING: Herb IMPRESSIONS: Major depressive disorder, recurrent; unspecified psychotic disorder, rule out associated with major depressive disorder; unspecified anxiety disorder PLAN: Patient will be admitted to the inpatient psychiatric unit [facility] on a voluntary basis. She'll be placed on SP 15 minute precautions. She'll participate in group and activity therapies. Baseline laboratory workup done the patient. Medical consultation will be ordered. She will be titrated up on Luvox help with depression and anxiety to 50 mg a.m. and at bedtime. We will add low-dose Abilify to more grams daily to help augment for mood and to help with any psychosis symptoms. BuSpar will be maintained at 30 monitor grams twice a day for anxiety. We will look into any family supports. Estimated length of stay is 3-5 days. Prognosis is guarded.
[2018-08-07] MEDS: ACETAMINOPHEN TAB 325 MG TAB PO PRN (17:58)
[2018-08-07] MEDS: ONDANSETRON 4 MG TAB PO PRN (17:59)
[2018-08-07] MEDS: MINERAL OIL-WHITE PETROLATUM 120 GM JAR TOPICAL PRN (18:37)
[2018-08-07] MEDS: TOPIRAMATE 25 MG TAB PO SCH (22:30)
[2018-08-08] MEDS: FLUTICASONE 50MCG/SPRAY NASAL 16GM EA NOSTRIL SCH ×3 (01:08→20:41)
[2018-08-08] MEDS: ARIPiprazole 2 MG TAB PO SCH (08:55)
[2018-08-08] MEDS: TOPIRAMATE 25 MG TAB PO SCH ×2 (08:55→20:40)
[2018-08-08] MEDS: FAMOTIDINE 20 MG TAB PO SCH ×2 (08:55→20:39)
[2018-08-08] MEDS: GABAPENTIN 300 MG CAP PO SCH ×2 (08:55→20:41)
[2018-08-08] MEDS: busPIRone HCl 10 MG TAB PO SCH ×2 (11:10→20:40)
[2018-08-08] MEDS: FLUTICASONE 44 MCG INHALER INHALATION SCH ×2 (12:51→19:16)
--- NOTE | 2018-08-08 13:08 | P.PN ---
Progress Note - Text Progress Note Date: 08/08/18 Interval history: Patient reports that last night she had an episode of sleep paralysis. She states that she woke up and couldn't move. She was seeing demons that were tearing her skin. She says this morning she felt agitated but that's currently doing better. She does not seem to voice any adverse psychotropic medication side effects. Mental status exam: She is alert and cooperative with the interview. Her speech is fluent, not rapid or pressured. Thought processes are organized. Her mood she describes was agitated earlier this morning but currently better. She denies any thoughts of harm to self or others. She admits to on and off seeing bugs but seems to deny any current visual hallucinations. She does not verbalize any current auditory hallucinations. No evidence of any agitation. Plan: Patient be maintained on current psychotropic medication regimen. We'll continue to monitor for any medication side effects and monitor her ongoing response to treatment.
[2018-08-08] MEDS: ACETAMINOPHEN TAB 325 MG TAB PO PRN (13:46)
[2018-08-08] MEDS: ONDANSETRON 4 MG TAB PO PRN ×2 (14:44→22:20)
[2018-08-08] MEDS: MONTELUKAST 10 MG TAB PO SCH (20:40)
[2018-08-08] MEDS: MINERAL OIL-WHITE PETROLATUM 120 GM JAR TOPICAL PRN (22:19)
[2018-08-09] MEDS: ARIPiprazole 2 MG TAB PO SCH (07:53)
[2018-08-09] MEDS: FAMOTIDINE 20 MG TAB PO SCH ×2 (07:54→20:59)
[2018-08-09] MEDS: TOPIRAMATE 25 MG TAB PO SCH (07:54)
[2018-08-09] MEDS: GABAPENTIN 300 MG CAP PO SCH ×2 (07:54→21:00)
[2018-08-09] MEDS: FLUTICASONE 50MCG/SPRAY NASAL 16GM EA NOSTRIL SCH ×2 (07:54→21:00)
[2018-08-09] MEDS: FLUTICASONE 44 MCG INHALER INHALATION SCH ×2 (09:12→21:33)
[2018-08-09 11:50] LABS: Glucose,Whole Blood 83 mg/dL (75-99)
[2018-08-09] MEDS: busPIRone HCl 10 MG TAB PO SCH ×2 (11:50→20:59)
[2018-08-09] MEDS ORDERED: SUMAtriptan SUCCINATE 6 MG/0.5 ML VIAL SQ STA (12:03)
--- NOTE | 2018-08-09 12:25 | P.PN ---
Subjective Progress Note Date: 08/09/18 Principal diagnosis: major depression with psychotic feature, migraines, fibromyalgia History of Present Illness Initial Comments: This is a 33-year-old female the ER for evaluation of psychiatric illness. Patient states she feels like she is having some hallucinations and delusions, thinking strong her skin, very emotional crying a controlled crying, patient cause of urticaria they were she was seen for possible ALLERGIC reaction. Patient's mental state custody come to ER for evaluation, she call [facility] to directed patient to emergency room MD Complaint: suicidal ideation, feels depressed Objective - Vital Signs Vital signs: Vital Signs Temp 98.0 F 08/09/18 06:49 Pulse 74 08/09/18 06:49 Resp 12 08/09/18 06:49 BP 139/73 08/09/18 06:49 Pulse Ox 99 08/06/18 17:35 - Labs CBC & Chem 7: 08/07/18 08:43 Assessment and Plan Assessment: Past Medical History Past Medical History: No Reported History Additional Past Medical History / Comment(s): agoraphobia, ocd History of Any Multi-Drug Resistant Organisms: None Reported Past Surgical History: Appendectomy, Cholecystectomy, Hysterectomy Additional Past Surgical History / Comment(s): sinus, kidney surgery r/t no flaps on the ureters Past Psychological History: PTSD, Schizoaffective Disorder Smoking Status: Never smoker Past Alcohol Use History: None Reported Past Drug Use History: None Reported PAST PSYCHIATRIC HISTORY: She relates she doesn't history of seasonal affective disorder. She says that for her hallucinations tend to happen August through December where she sees things. This is her ninth inpatient psychiatric admissions. She has a history of 2 suicide attempts which were overdoses. She doesn't history of cutting behavior but has not exhibited any cutting behavior over the last year. Says in the past she has broken her own bones. She currently sees a counselor Eleonora at [facility] and psychiatrist Dr. Pascual through [facility]. She has most recent been on Luvox 50 mg daily and BuSpar 30 mg twice a day. She feels that these medications have worked well. She was on Abilify in the past. PMH: Fibromyalgia, asthma MENTAL STATUS EXAM: She is alert and cooperative with the interview. Her speech is fluent, not rapid or pressured. Her thought processes overall are organized. She describes her mood as "very anxious." Her affect is able show range. She denies any current visual hallucinations but gives a history of visual hallucinations of seeing bugs historically August through December. She makes reference to recently feeling a presence but not fully seeing it yet. She makes reference to killing a few bugs on her here. She relays she feels bugs on her constantly. She does not show any agitation. She denies any recent or current thoughts of harm to self or others. She does not verbalize any auditory hallucinations. Cognitively she appears very grossly intact. Insight is adequate, judgment shows evidence of recent impairment. STRENGTHS/WEAKNESSES: Strengths-seeking treatment, weaknesses-coping skills INTELLECTUAL FUNCTIONING: Herb IMPRESSIONS: Major depressive disorder, recurrent; unspecified psychotic disorder, rule out associated with major depressive disorder; unspecified anxiety disorder (1) Chronic fatigue syndrome with fibromyalgia Current Visit: Yes Status: Acute Priority: High Code(s): R53.82 - CHRONIC FATIGUE, UNSPECIFIED; M79.7 - FIBROMYALGIA SNOMED Code(s): 21461391 (2) Migraines, neuralgic Current Visit: Yes Status: Acute Priority: High Code(s): G44.009 - CLUSTER HEADACHE SYNDROME, UNSPECIFIED, NOT INTRACTABLE SNOMED Code(s): 224487360 Plan: increase topamax 200 mg bid; triptan for abortive migraine increase luvox 100 mg po qhs; cloimpramine for OCD Time with Patient: Greater than 30
[2018-08-09 14:18] VITALS: BMI 35.6
[2018-08-09] MEDS: ONDANSETRON 4 MG TAB PO PRN (16:21)
[2018-08-09] MEDS: MONTELUKAST 10 MG TAB PO SCH (21:00)
[2018-08-09] MEDS: TOPIRAMATE 100 MG TAB PO SCH (21:00)
[2018-08-09] MEDS: MINERAL OIL-WHITE PETROLATUM 120 GM JAR TOPICAL PRN (22:38)
[2018-08-10] MEDS: ONDANSETRON 4 MG TAB PO PRN (07:45)
[2018-08-10] MEDS: FLUTICASONE 50MCG/SPRAY NASAL 16GM EA NOSTRIL SCH ×2 (08:50→22:30)
[2018-08-10] MEDS: FAMOTIDINE 20 MG TAB PO SCH ×2 (08:50→22:02)
[2018-08-10] MEDS: TOPIRAMATE 100 MG TAB PO SCH ×2 (08:51→22:26)
[2018-08-10] MEDS: GABAPENTIN 300 MG CAP PO SCH ×2 (08:51→22:26)
[2018-08-10] MEDS: FLUTICASONE 44 MCG INHALER INHALATION SCH ×2 (09:33→22:05)
[2018-08-10] MEDS: busPIRone HCl 10 MG TAB PO SCH ×2 (11:14→22:26)
[2018-08-10] MEDS: MENTHOL (NICE) LOZENGE MUCOUS MEM PRN ×2 (15:33→19:01)
[2018-08-10] MEDS: ACETAMINOPHEN TAB 325 MG TAB PO PRN (19:01)
[2018-08-10] MEDS ORDERED: ARIPiprazole 5 MG TAB PO SCH (21:00)
[2018-08-10] MEDS: MONTELUKAST 10 MG TAB PO SCH (22:01)
[2018-08-11 06:50] VITALS: BP 127/94; PULSE 100; RESP 16; TEMP 98.2
[2018-08-11] MEDS: FAMOTIDINE 20 MG TAB PO SCH (08:50)
[2018-08-11] MEDS: TOPIRAMATE 100 MG TAB PO SCH (08:50)
[2018-08-11] MEDS: GABAPENTIN 300 MG CAP PO SCH (08:50)
[2018-08-11] MEDS: FLUTICASONE 50MCG/SPRAY NASAL 16GM EA NOSTRIL SCH (08:51)
[2018-08-11] MEDS: FLUTICASONE 44 MCG INHALER INHALATION SCH (09:51)
--- NOTE | 2018-08-11 11:56 | P.DS ---
Providers Date of admission: 08/06/18 22:22 Expected date of discharge: 08/11/18 Attending physician: Brandon Novoa DO Consults: 08/06/18 22:55 Consult Physician Routine Consulting Provider: Darvin Mehta Consult Reason/Comments: H&P for mental health admisison Do you want consulting provider notified?: Yes Primary care physician: [facility] - Discharge Diagnosis(es) (1) Chronic fatigue syndrome with fibromyalgia Identifying Information: [IDENTIFYING DATA: 33-year-old female patient. HPI: Patient is admitted to the inpatient psychiatric unit [facility] on a voluntary basis with recent concerns of depression as well as concerns of visual hallucinations. Patient [facility] of an [facility]ERGIC reaction to medication and she says she had a bad anxiety attack there. She states that they talked about her coming to the hospital for psychiatric evaluation. She says she always cycles bad in August and she decided to get ahead of the situation. She states that she has a history of hallucinations of seeing bugs and she states that she has been feeling a presence but doesn't fully see it yet. She makes reference to her house being infested with fleas, she is not sure sometimes it there is actually about on her or she is hallucinating about. She says that she killed a few bugs on her here. She makes reference to being really itchy and relays that she would like to take off her skin and itch her bones. She says she feels bugs on her constantly. She does admit to some recent depression. PAST PSYCHIATRIC HISTORY: She relates she doesn't history of seasonal affective disorder. She says that for her hallucinations tend to happen August through December where she sees things. This is her ninth inpatient psychiatric admissions. She has a history of 2 suicide attempts which were overdoses. She doesn't history of cutting behavior but has not exhibited any cutting behavior over the last year. Says in the past she has broken her own bones. She currently sees a counselor Eleonora at [facility] and psychiatrist Dr. Pascual through [facility]. She has most recent been on Luvox 50 mg daily and BuSpar 30 mg twice a day. She feels that these medications have worked well. She was on Abilify in the past. PMH: Fibromyalgia, asthma] Chief Complaint and Reason for Hospitalization: [Action and suicidal thoughts with fatigue from chronic fatigue syndrome] Course of Treatment: [She was placed in [facility] therapeutic environment whereby an groups and milieu environment she was able to integrate well and help other individuals. She was also placed on the following medications and titrated to their discharge dose; ]Butalb/APAP/Caff 50-325-40Mg [Fioricet 50-325-40] 1 tab PO DAILY PRN 08/06/18 [ History] ARIPiprazole [Abilify] 5 mg PO 2100 30 Days #30 tab 08/11/18 [Rx] Abilify was utilize since it would help with the agitation part of her depression Topiramate [Topamax] 200 mg PO BID 60 Days #60 tab 08/11/18 [Rx] Topamax was maximized to prevent any more headaches has it's used as a preventative clomiPRAMINE [Anafranil] 25 mg PO 2100 30 Days #30 cap 08/11/18 [Rx] clomipramine was added to the fact that will help with her OCD and depression fluvoxaMINE [Luvox] 200 mg PO HS 30 Days #60 tab 08/11/18 [Rx] I maximized the dose of Luvox since it was only 100 mg a day I increased it to 200 Physical/Medical Condition on Discharge:[ Stable] Functional Condition on Discharge: [Returned to baseline] Number of Routinely Scheduled Antipsychotic Medication(s) Prescribed: [1] Appropriate Justification for discharging the Patient on Two or More Antipsychotic Medications: [1 antipsychotic used] Discharge Diagnosis: [Major depressive disorder, recurrent; unspecified psychotic disorder, rule out associated with major depressive disorder; unspecified anxiety disorder] Risk Factors: [Work] Recommendations/Follow-up/Aftercare: [She should follow up with her psychiatrist therapist and family practice doctor as outlined below] Current Visit: Yes Status: Acute Priority: High (2) Migraines, neuralgic Current Visit: Yes Status: Acute Priority: High Patient Condition at Discharge: Fair Plan - Discharge Summary Discharge Rx Participant: No New Discharge Prescriptions: New ARIPiprazole [Abilify] 5 mg PO 2100 30 Days #30 tab clomiPRAMINE [Anafranil] 25 mg PO 2100 30 Days #30 cap fluvoxaMINE [Luvox] 200 mg PO HS 30 Days #60 tab Topiramate [Topamax] 200 mg PO BID 60 Days #60 tab Continue Butalb/APAP/Caff 50-325-40Mg [Fioricet 50-325-40] 1 tab PO DAILY PRN PRN Reason: Migraine Headache Discontinued Topiramate [Topamax] 50 mg PO BID@ fluvoxaMINE [Luvox] 50 mg PO AC-LUNCH@1100 Ranitidine HCl [Zantac] 150 mg PO BID@ Gabapentin [Neurontin] 300 mg PO BID@ Budesonide [Pulmicort Flexhaler] 2 puff INHALATION RT-BID busPIRone HCL [Buspar] 30 mg PO BID@ Fluticasone Nasal [place] [Flonase Nasal [place]] 2 spray EA NOSTRIL BID Ondansetron HCl [Zofran] 4 mg PO TID PRN PRN Reason: Nausea Discharge Medication List Butalb/APAP/Caff 50-325-40Mg [Fioricet 50-325-40] 1 tab PO DAILY PRN 08/06/18 [ History] ARIPiprazole [Abilify] 5 mg PO 2100 30 Days #30 tab 08/11/18 [Rx] Topiramate [Topamax] 200 mg PO BID 60 Days #60 tab 08/11/18 [Rx] clomiPRAMINE [Anafranil] 25 mg PO 2100 30 Days #30 cap 08/11/18 [Rx] fluvoxaMINE [Luvox] 200 mg PO HS 30 Days #60 tab 08/11/18 [Rx] Follow up Appointment(s)/Referral(s): [facility] [Primary Care Provider] - 1-2 days Discharge Disposition: HOME SELF-CARE
[2018-08-11] MEDS: busPIRone HCl 10 MG TAB PO SCH (12:11)
== END 2018-08-11 16:05 | disposition home or self-care (01) | DRG 885 ==
LOC: EC 17:21 → 3MHU 22:22
PROVIDERS: ADMIT Psychiatry & Neurology Psychiatry; ATTEND Psychiatry & Neurology Psychiatry
DX: F33.3 Major depressive disorder, recurrent, severe with psychotic symptoms (principal); R45.851 Suicidal ideations; F40.00 Agoraphobia, unspecified; F41.1 Generalized anxiety disorder; F42.9 Obsessive-compulsive disorder, unspecified; F43.10 Post-traumatic stress disorder, unspecified; G43.909 Migraine, unspecified, not intractable, without status migrainosus; G83.9 Paralytic syndrome, unspecified; J45.909 Unspecified asthma, uncomplicated; L50.9 Urticaria, unspecified; M79.7 Fibromyalgia; Z79.899 Other long term (current) drug therapy; Z90.710 Acquired absence of both cervix and uterus; Z91.5 Personal history of self-harm; Z88.2 Allergy status to sulfonamides; Z88.8 Allergy status to other drugs, medicaments and biological substances; Z91.02 Food additives allergy status; Z91.011 Allergy to milk products; Z88.5 Allergy status to narcotic agent; Z91.018 Allergy to other foods; Z91.013 Allergy to seafood; K21.9 Gastro-esophageal reflux disease without esophagitis
CPT/HCPCS: 80053; 80306; 81003; 81025; 82075; 84443; 94640; 99285

== ENCOUNTER → 2018-10-11 | Outpatient (CLI) | payer MEDICARE, OTHER ==
[2018-10-11 09:37] LABS: Basophils # (A) 0.1 k/uL (0-0.2); Basophils % (A) 1 %; Eosinophils # (A) 0.1 k/uL (0-0.7); Eosinophils % (A) 1 %; HCT 45.2 % (34.0-46.0); HGB 14.5 gm/dL (11.4-16.0); Lymphocytes # (A) 1.1 k/uL (1.0-4.8); Lymphocytes % (A) 16 %; MCHC 32.1 g/dL (31.0-37.0); MCV 90.5 fL (80.0-100.0); Mean Platelet Volume 7.3; Monocytes # (A) 0.4 k/uL (0-1.0); Monocytes % (A) 6 %; Neutrophils # (A) 5.4 k/uL (1.3-7.7); Neutrophils % (A) 75 %; Platelet Count 231 k/uL (150-450); RDW 12.7 % (11.5-15.5); WBC 7.2 k/uL (3.8-10.6)
[2018-10-11 16:59] LABS: Immunoglobulin E 1.11 IU/mL (0.00-114.00)
[2018-10-12 12:39] LABS: Immunoglobulin M 77.1 mg/dL (40.0-280.0)
== END | disposition home or self-care (01) ==
LOC: LABWHC1 08:11
PROVIDERS: ATTEND Otolaryngology
DX: J30.89 Other allergic rhinitis (principal); R53.83 Other fatigue
CPT/HCPCS: 36415; 82784; 82785; 85025

== ENCOUNTER → 2018-11-04 | Outpatient (CLI) | payer MEDICARE, OTHER ==
--- NOTE | 2018-11-04 13:32 | XR ---
EXAMINATION TYPE: XR chest 2V DATE OF EXAM: 11/04/2018 COMPARISON: Prior chest 06/08/2018 HISTORY: Chronic cough TECHNIQUE: Frontal and lateral views of the chest are obtained. FINDINGS: There is no focal air space opacity, pleural effusion, or pneumothorax seen. The cardiac silhouette size is within normal limits. The osseous structures are intact. IMPRESSION: No acute cardiopulmonary process.
[2018-11-04 16:28] LABS: ALT 11 U/L (8-44); AST 13 U/L (13-35); Rheumatoid Factor 6 IU/mL (0-15)
[2018-11-04 16:51] LABS: Hepatitis A Antibody IgM Non-Reactive (Non-Reactive); Hepatitis B Core IgM Non-Reactive (Non-Reactive)
== END | disposition home or self-care (01) ==
LOC: LABWHC1 10:24
PROVIDERS: ATTEND Otolaryngology
DX: R05 Cough (principal)
CPT/HCPCS: 36415; 71046; 80074; 84450; 84460; 86038; 86431

== ENCOUNTER 2018-11-06 22:05 | Emergency (ER) | payer MEDICARE, OTHER ==
[2018-11-06 22:45] VITALS: TEMP 97.7
[2018-11-06] MEDS ORDERED: SODIUM CHLORIDE 0.9% 1,000 ML IV STA (23:22)
[2018-11-06] MEDS ORDERED: KETOROLAC 30 MG/ML 1 ML VIAL IVP STA (23:22)
[2018-11-06] MEDS ORDERED: ONDANSETRON 4 MG/2 ML VIAL IVP STA (23:22)
[2018-11-06 23:41] LABS: Basophils # (A) 0.1 k/uL (0-0.2); Basophils % (A) 1 %; Eosinophils # (A) 0.2 k/uL (0-0.7); Eosinophils % (A) 2 %; HCT 41.7 % (34.0-46.0); HGB 14.2 gm/dL (11.4-16.0); Lymphocytes # (A) 2.4 k/uL (1.0-4.8); Lymphocytes % (A) 27 %; MCH 30.1 pg (25.0-35.0); MCHC 34.1 g/dL (31.0-37.0); MCV 88.4 fL (80.0-100.0); Mean Platelet Volume 7.2; Monocytes # (A) 0.6 k/uL (0-1.0); Monocytes % (A) 6 %; Neutrophils # (A) 5.7 k/uL (1.3-7.7); Neutrophils % (A) 63 %; Platelet Count 211 k/uL (150-450); RBC 4.72 m/uL (3.80-5.40); RDW 12.8 % (11.5-15.5)
[2018-11-06 23:43] LABS: Appearance,Urine Clear (Clear); Bilirubin,Urine Negative (Negative); Blood,Urine Negative (Negative); Color,Urine Yellow; Glucose,Urine (UA) Negative (Negative); Ketones,Urine Negative (Negative); Leukocyte Esterase,Urine Negative (Negative); Nitrite,Urine Negative (Negative); Protein,Urine Negative (Negative); Specific Gravity,Urine 1.015 (1.001-1.035); Urobilinogen,Urine <2.0 mg/dL (<2.0)
[2018-11-06 23:51] LABS: ALT 21 U/L (9-52); AST 17 U/L (14-36); Albumin 3.4 g/dL (3.5-5.0); Alkaline Phosphatase 60 U/L (38-126); Amylase 47 U/L (30-110); Anion Gap 6 mmol/L; Blood Urea Nitrogen 9 mg/dL (7-17); Calcium 8.7 mg/dL (8.4-10.2); Carbon Dioxide 23 mmol/L (22-30); Chloride 110 mmol/L (98-107); Glucose 103 mg/dL (74-99); Lipase 126 U/L (23-300); Potassium 4.6 mmol/L (3.5-5.1); Sodium 139 mmol/L (137-145); Total Bilirubin 0.3 mg/dL (0.2-1.3)
--- NOTE | 2018-11-07 01:13 | CT ---
EXAMINATION TYPE: CT abdomen pelvis w con DATE OF EXAM: 11/07/2018 COMPARISON: None HISTORY: LLQ pain CT DLP: 1325.6 mGycm Automated exposure control for dose reduction was used. TECHNIQUE: Helical acquisition of images was performed from the lung bases through the pelvis. CONTRAST: Performed without Oral Contrast and with IV Contrast, patient injected with 100mL mL of Isovue 300. FINDINGS: Lung bases are clear. There is no pleural effusion. Heart size is normal. There is no pericardial eff usion. Liver spleen pancreas appear normal. There are clips from cholecystectomy. Bile ducts are not dilated . There is small hiatal hernia. There is no adrenal mass. Kidneys show satisfactory contrast opacification. There is no hydronephrosi s. Ureters are not dilated. There is no retroperitoneal adenopathy. Bladder distends smoothly. There is no inguinal hernia. There is no free fluid in the pelvis. There is hysterectomy. There is no adnex al mass. I see no intestinal obstruction. There is no evidence of a thickened appendix. Appendix is n ot definitely seen. There is no mesenteric edema. There is no sign of free air. There is no ascites. I see no intestinal wall thickening. There are no dilated loops. The lumbar spine and bony pelvis appear intact. IMPRESSION: NEGATIVE CT SCAN OF THE ABDOMEN AND PELVIS. I DO NOT SEE A CAUSE FOR LEFT LOWER QUADRANT PAIN.
[2018-11-07 01:42] VITALS: BP 101/60; PULSE 67; RESP 16
[2018-11-07] MEDS ORDERED: ONDANSETRON 4 MG ODT STARTER PACK 2 TAB BTL PO STA (01:44)
--- NOTE | 2018-11-07 01:44 | ED ---
Abdominal Pain HPI - General Chief Complaint: Abdominal Pain Stated Complaint: Abd pain Time Seen by Provider: 11/06/18 22:58 Source: patient Mode of arrival: ambulatory Limitations: no limitations - History of Present Illness Initial Comments: 33-year-old female patient presents to the emergency department today for evaluation of left lower quadrant abdominal pain that radiates into her back. Patient states the pain started earlier today. States after onset of pain she did have a couple episodes of vomiting. States that she has not had any diarrhea, denies constipation. Denies any hematemesis, hematochezia or melena. Patient states that she did have kidney stones as a child the pain feels somewhat similar. States it feels like a spasming, cramping type pain. She denies any abnormal vaginal bleeding or discharge. Does have history of hysterectomy. Denies any fevers or chills with this. Denies any hematuria, dysuria, urinary frequency, urinary urgency. Patient denies any recent rash, fever, chills, shortness breath, chest pain, abdominal pain, nausea, vomiting, diarrhea, constipation, back pain, numbness, tingling, dizziness, weakness, hematuria, dysuria, urinary urgency, urinary frequency, headache, visual changes , or any other complaints. - Related Data Home Medications Medication Instructions Recorded Confirmed [place]al[place]/APAP/Caff 50-325-40Mg 1 tab PO DAILY PRN 08/06/18 08/06/18 [Fioricet 50-325-40] Previous Rx's Medication Instructions Recorded ARIPiprazole [Abilify] 5 mg PO 2100 30 Days #30 tab 08/11/18 Topiramate [Topamax] 200 mg PO BID 60 Days #60 tab 08/11/18 clomiPRAMINE [Anafranil] 25 mg PO 2100 30 Days #30 cap 08/11/18 fluvoxaMINE [Luvox] 200 mg PO HS 30 Days #60 tab 08/11/18 Dicyclomine [Bentyl] 20 mg PO QID #12 tablet 11/07/18 Allergies Allergy/AdvReac Type Severity Reaction Status Date / Time codeine Allergy Unknown Verified 08/06/18 22:28 fish derived Allergy Anaphylaxis Verified 08/07/18 11:43 levocetirizine [From Xyzal] Allergy Unknown Verified 08/06/18 22:28 loratadine [From Claritin] Allergy Unknown Verified 08/06/18 22:28 nortriptyline [From Pamelor] Allergy Unknown Verified 08/06/18 22:28 Sulfa (Sulfonamide Allergy Unknown Verified 08/06/18 22:28 Antibiotics) celery AdvReac Nausea & Verified 08/07/18 11:42 Vomiting Milk Containing Products AdvReac Nausea & Verified 08/07/18 11:41 Vomiting nut - unspecified AdvReac Nausea & Verified 08/07/18 11:44 Vomiting tomato AdvReac Nausea & Verified 08/07/18 11:40 Vomiting wheat AdvReac Nausea & Verified 08/07/18 11:41 Vomiting Review of Systems ROS Statement: Those systems with pertinent positive or pertinent negative responses have been documented in the HPI. ROS Other: All systems not noted in ROS Statement are negative. Past Medical History Past Medical History: No Reported History Additional Past Medical History / Comment(s): agoraphobia, ocd History of Any Multi-Drug Resistant Organisms: None Reported Past Surgical History: Appendectomy, Cholecystectomy, Hysterectomy Additional Past Surgical History / Comment(s): sinus, kidney surgery r/t no flaps on the ureters Past Psychological History: PTSD, Schizoaffective Disorder Smoking Status: Never smoker Past Alcohol Use History: None Reported Past Drug Use History: None Reported General Exam Limitations: no limitations General appearance: alert, in no apparent distress, other (This is a well- developed, well-nourished adult female patient in no acute distress. Vital signs upon presentation are temperature 97.7F, pulse 92, respirations 21, blood pressure 100/75, pulse ox 97% on room air.) Eye exam: Present: normal appearance, PERRL, EOMI. Absent: scleral icterus, conjunctival injection, periorbital swelling ENT exam: Present: normal exam, normal oropharynx, mucous membranes moist Respiratory exam: Present: normal lung sounds bilaterally. Absent: respiratory distress, wheezes, rales, rhonchi, stridor Cardiovascular Exam: Present: regular rate, normal rhythm, normal heart sounds. Absent: systolic murmur, diastolic murmur, rubs, gallop, clicks GI/Abdominal exam: Present: soft, tenderness (Tenderness to the left lower quadrant), normal bowel sounds. Absent: distended, guarding, rebound, rigid Back exam: Present: normal inspection. Absent: CVA tenderness (R), CVA tenderness (L) Neurological exam: Present: alert Psychiatric exam: Present: normal affect, normal mood Skin exam: Present: warm, dry, intact, normal color. Absent: rash Course Vital Signs 11/06/18 11/07/18 22:42 01:41 Temperature 97.7 F Pulse Rate 92 67 Respiratory 21 16 Rate Blood Pressure 100/75 101/60 O2 Sat by Pulse 97 98 Oximetry Medical Decision Making - Medical Decision Making 33-year-old female patient presents to the emergency department today for evaluation of left lower quadrant abdominal pain. Physical examination did reveal some left lower quadrant tenderness. No CVA tenderness. Labs reviewed and were unremarkable. Computed tomography scan abdomen and pelvis was obtained and showed no acute intra-abdominal process. Upon reevaluation patient does report improvement of symptoms. Instructed to follow-up with her primary care physician for recheck in 1-2 days. Return parameters discussed in detail. She verbalizes understanding and agrees with this plan - Lab Data Result diagrams: 11/06/18 23:26 11/06/18 23:26 Lab Results 11/06/18 11/06/18 11/06/18 Range/Units 23:14 23:26 23:26 WBC 9.0 (3.8-10.6) k/uL RBC 4.72 (3.80-5.40) m/uL Hgb 14.2 (11.4-16.0) gm/dL Hct 41.7 (34.0-46.0) % MCV 88.4 (80.0-100.0) fL MCH 30.1 (25.0-35.0) pg MCHC 34.1 (31.0-37.0) g/dL RDW 12.8 (11.5-15.5) % Plt Count 211 (150-450) k/uL Neutrophils % 63 % Lymphocytes % 27 % Monocytes % 6 % Eosinophils % 2 % Basophils % 1 % Neutrophils # 5.7 (1.3-7.7) k/uL Lymphocytes # 2.4 (1.0-4.8) k/uL Monocytes # 0.6 (0-1.0) k/uL Eosinophils # 0.2 (0-0.7) k/uL Basophils # 0.1 (0-0.2) k/uL Sodium 139 (137-145) mmol/L Potassium 4.6 (3.5-5.1) mmol/L Chloride 110 H (98-107) mmol/L Carbon Dioxide 23 (22-30) mmol/L Anion Gap 6 mmol/L BUN 9 (7-17) mg/dL Creatinine 0.60 (0.52-1.04) mg/dL Est GFR (CKD-EPI)AfAm >90 (>60 ml/min/1.73 sqM) Est GFR (CKD-EPI)NonAf >90 (>60 ml/min/1.73 sqM) Glucose 103 H (74-99) mg/dL Calcium 8.7 (8.4-10.2) mg/dL Total Bilirubin 0.3 (0.2-1.3) mg/dL AST 17 (14-36) U/L ALT 21 (9-52) U/L Alkaline Phosphatase 60 (38-126) U/L Total Protein 6.0 L (6.3-8.2) g/dL Albumin 3.4 L (3.5-5.0) g/dL Amylase 47 (30-110) U/L Lipase 126 (23-300) U/L Urine Color Yellow Urine Appearance Clear (Clear) Urine pH 5.0 (5.0-8.0) Ur Specific [place] 1.015 (1.001-1.035) Urine Protein Negative (Negative) Urine Glucose (UA) Negative (Negative) Urine Ketones Negative (Negative) Urine Blood Negative (Negative) Urine Nitrite Negative (Negative) Urine Bilirubin Negative (Negative) Urine Urobilinogen <2.0 (<2.0) mg/dL Ur Leukocyte Esterase Negative (Negative) - Radiology Data Radiology results: report reviewed, image reviewed CT of the abdomen and pelvis with contrast was obtained. Report was reviewed in its entirety. Impression by Dr. Pang shows negative computed tomography scan of the abdomen and pelvis. No findings to account for left lower quadrant pain. Disposition Clinical Impression: Abdominal pain Disposition: HOME SELF-CARE Condition: Good Instructions: Abdominal Pain (ED) Additional Instructions: Follow up with primary care physician for recheck in 1-2 days. Return immediately for any new, worsening, or concerning symptoms. Prescriptions: Dicyclomine [Bentyl] 20 mg PO QID #12 tablet Is patient prescribed a controlled substance at d/c from ED?: No Referrals: [facility] [Primary Care Provider] - 1-2 days Time of Disposition: 01:44
== END 2018-11-07 01:53 | disposition home or self-care (01) ==
LOC: EC 22:05
DX: R10.32 Left lower quadrant pain (principal); R11.10 Vomiting, unspecified; Z88.5 Allergy status to narcotic agent; Z88.2 Allergy status to sulfonamides; Z88.8 Allergy status to other drugs, medicaments and biological substances; Z91.013 Allergy to seafood; Z91.018 Allergy to other foods; Z91.011 Allergy to milk products; Z90.89 Acquired absence of other organs; Z90.49 Acquired absence of other specified parts of digestive tract; Z90.710 Acquired absence of both cervix and uterus; Z87.442 Personal history of urinary calculi
CPT/HCPCS: 36415; 80053; 82150; 83690; 85025; 81003; 74177; 99284; 96374; 96375; 96361; J2405; J1885; S0119; Q9967

== ENCOUNTER → 2019-08-25 | Outpatient (CLI) | payer MEDICARE, OTHER ==
[2019-08-25 11:55] LABS: Basophils % (A) 1 %; Eosinophils # (A) 0.5 k/uL (0-0.7); Eosinophils % (A) 7 %; HCT 43.4 % (34.0-46.0); HGB 14.3 gm/dL (11.4-16.0); Lymphocytes # (A) 1.2 k/uL (1.0-4.8); Lymphocytes % (A) 18 %; MCH 29.8 pg (25.0-35.0); MCHC 32.9 g/dL (31.0-37.0); MCV 90.7 fL (80.0-100.0); Mean Platelet Volume 6.2; Monocytes # (A) 0.3 k/uL (0-1.0); Monocytes % (A) 5 %; Neutrophils # (A) 4.7 k/uL (1.3-7.7); Neutrophils % (A) 68 %; Platelet Count 222 k/uL (150-450); RBC 4.79 m/uL (3.80-5.40); RDW 12.6 % (11.5-15.5); WBC 6.9 k/uL (3.8-10.6)
[2019-08-25 17:04] LABS: DHEA Sulfate 51.9 ug/dL (26.0-430.0)
[2019-08-25 17:23] LABS: Ferritin 89.7 ng/mL (10.0-291.0)
[2019-08-25 17:24] LABS: Follicle Stimulating Hormone 9.9 mIU/mL; Luteinizing Hormone 5.5 mIU/mL
[2019-08-25 17:33] LABS: Estradiol 32.6 pg/mL
[2019-08-25 17:47] LABS: Progesterone <0.2 ng/mL
== END | disposition home or self-care (01) ==
LOC: LABWHC1 10:30
PROVIDERS: ATTEND Dermatology
DX: L64.8 Other androgenic alopecia (principal); L21.8 Other seborrheic dermatitis; L28.0 Lichen simplex chronicus; L08.9 Local infection of the skin and subcutaneous tissue, unspecified
CPT/HCPCS: 36415; 80327; 82627; 82670; 82728; 83001; 83002; 83540; 84144; 84402; 84403; 84439; 84443; 84481; 85025

== ENCOUNTER → 2019-09-08 | Outpatient (CLI) | payer MEDICARE, OTHER ==
[2019-09-08 17:32] LABS: Basophils # (A) 0.1 k/uL (0-0.2); Basophils % (A) 1 %; Eosinophils # (A) 0.2 k/uL (0-0.7); Eosinophils % (A) 2 %; HCT 43.2 % (34.0-46.0); HGB 14.4 gm/dL (11.4-16.0); Lymphocytes # (A) 1.5 k/uL (1.0-4.8); Lymphocytes % (A) 15 %; MCH 30.2 pg (25.0-35.0); MCHC 33.4 g/dL (31.0-37.0); MCV 90.7 fL (80.0-100.0); Mean Platelet Volume 5.9; Monocytes # (A) 0.6 k/uL (0-1.0); Monocytes % (A) 7 %; Neutrophils % (A) 73 %; Platelet Count 217 k/uL (150-450); RBC 4.76 m/uL (3.80-5.40); RDW 12.6 % (11.5-15.5); WBC 9.5 k/uL (3.8-10.6)
[2019-09-09 01:09] LABS: African American GFR (CKD) 95.3 (60.0-200.0)
== END | disposition home or self-care (01) ==
LOC: LABWHC1 16:18
PROVIDERS: ATTEND Dermatology
DX: L08.9 Local infection of the skin and subcutaneous tissue, unspecified (principal); L64.8 Other androgenic alopecia
CPT/HCPCS: 36415; 82465; 82565; 84450; 84460; 84478; 84520; 85025

== ENCOUNTER → 2020-06-04 | Outpatient (CLI) | payer MEDICARE, OTHER ==
[2020-06-08 09:59] LABS: Immunoglobulin G 860
[2020-06-08 10:00] LABS: IgG - CSF 0.8; IgG/Albumin Index (CSF) 0.55
== END | disposition home or self-care (01) ==
LOC: LABWHC1 09:30
PROVIDERS: ATTEND Psychiatry & Neurology Neurology
DX: R51 Headache (principal); R90.82 White matter disease, unspecified
CPT/HCPCS: 36415; 82040; 82042; 82784; 83873; 83916

== ENCOUNTER → 2021-11-25 | Outpatient (CLI) | payer MEDICARE, OTHER ==
--- NOTE | 2021-11-25 11:42 | FL ---
EXAMINATION TYPE: FL barium swallow w video DATE OF EXAM: 11/25/2021 MODIFIED SWALLOW / DEGLUTITION STUDY CLINICAL HISTORY: Dysphagia. TECHNIQUE: Deglutition study is performed utilizing thin liquid barium, honey and nectar thick liqui d barium, barium thick pudding, and barium coated cracker. 1 minutes 6 seconds of fluoro time and 0 images obtained. COMPARISON: None. FINDINGS: The oral and pharyngeal phases show satisfactory initiation and propagation with all modali ties tested. Normal mastication is seen with solid modalities tested. There is no evidence of penet ration or aspiration with any modality tested. No significant pharyngeal residue was appreciated. Masoud guy had a few coughing episodes during the study of uncertain etiology IMPRESSION: No penetration or aspiration observed. Please refer to speech therapist notes for further details if necessary.
== END | disposition home or self-care (01) ==
LOC: RADFLMAIN 11:08
PROVIDERS: ATTEND Psychiatry & Neurology Sleep Medicine
DX: G62.9 Polyneuropathy, unspecified (principal); R13.10 Dysphagia, unspecified
CPT/HCPCS: 36415; 74230; 82595

== ENCOUNTER → 2023-03-25 | Outpatient (CLI) | payer MEDICARE ==
[2023-03-25 21:40] LABS: Gliadin AB IgA, Deaminated NEGATIVE (NEGATIVE); Gliadin AB IgA, Unit 0.3 U/mL; Gliadin AB IgG, Deaminated NEGATIVE (NEGATIVE); Gliadin AB IgG, Unit <0.4 U/mL
== END | disposition home or self-care (01) ==
LOC: LABWHC1 12:26
PROVIDERS: ATTEND Nurse Practitioner Family
DX: R19.4 Change in bowel habit (principal)
CPT/HCPCS: 36415; 83516; 85652; 86140